=== PATIENT | male | born 1985 | race Caucasian/White ===

== ENCOUNTER 2016-04-06 05:26 | Day surgery (SDC) | payer OTHER ==
[~2016-04-06 05:26] MED LIST: Dextrose 5%-0.45% NaCl 1,000 ML IV SCH; Sodium Chloride 0.9% 10 ML Syringe FLUSH PRN
[2016-04-06] MEDS ORDERED: Sodium Chloride 0.9% 10 ML Syringe FLUSH PRN (06:00)
[2016-04-06] MEDS ORDERED: Dextrose 5%-0.45% NaCl 1,000 ML IV SCH (06:00)
[2016-04-06] MEDS ORDERED: Midazolam 1 MG/ML 2 ML SDV ONE (06:08)
[2016-04-06] MEDS ORDERED: fentaNYL 100 MCG/2 ML SDV ONE (06:08)
[2016-04-06] MEDS ORDERED: fentaNYL 100 MCG/2 ML SDV IV ONE ×3 (06:26→17:04)
[2016-04-06] MEDS ORDERED: Midazolam 1 MG/ML 2 ML SDV IV ONE ×4 (06:27→17:04)
--- NOTE | 2016-04-06 07:28 | OR ---
DATE: 04/06/2016 PROCEDURE: Esophagogastroduodenoscopy and multiple pinch biopsies. INSTRUMENT USED: GIF-H180 Olympus video panendoscope. PREMEDICATIONS: No oral topical anesthesia used. Fentanyl 100 mcg intravenous, Versed 2 mg intravenous. Nasal 2 L O2 cannula. The procedure was done under pulse oximetry, BP recording, and scrap stripper hand. INDICATION: The patient with longstanding difficulties of heartburn, related chest discomfort, regurgitation, dyspepsia, as well as abdominal pain unexplained and not responsive to medical measures. Esophagogastroduodenoscopy is performed for detection of any active erosive lesions, [place] esophagus and/or malignancy also under consideration, H. pylori status to be determined, small bowel biopsies to be obtained for celiac disease, endoscopic hemostasis therapy if needed. DESCRIPTION OF PROCEDURE: The scope was passed with ease. Adequate visualization of the esophagus was made from proximal to distal areas. No upper esophageal lesions identified. No distal esophageal stricture. No uphill or downhill esophageal varices. No Claudia-Butler tear. Grade A erosive changes were noted by [place] criteria. No esophageal polyp or tumor mass identified. Z-line was seen at around 40 cm distal to the oral verge, configuration consistent with grade 1 by ZAP classification. No proximal gastric varices noted. Gastric fundus examination by retroflexion showed no polypoid lesions. No gastric ulcer, malignant mass, or vascular ectasia identified. Duodenal bulb showed no ulcer. Visualized second part of the duodenum was unremarkable. Multiple pinch biopsies, 4 in number, were taken from different areas of the second part of the duodenum and tissues were also obtained of duodenal bulb at 9 and 12 o'clock positions and sent for any evidence of celiac disease. Multiple pinch biopsies were obtained from the gastric antrum and proximal body and sent for PyloriTek test for H. pylori and histopathology. No bleeding was noted from any of the visualized areas at the completion of examination. Photographs were taken of the duodenal bulb, gastric antrum, fundus, and distal esophagus. IMPRESSION: 1. Grade A gastroesophageal reflux disease. 2. Gastric antral erosions. The patient tolerated the procedure well. [facility] /[id number]
[2016-04-06 08:53] VITALS: BP 95/56
== END 2016-04-06 08:40 | disposition home or self-care (01) ==
LOC: DL.ENDO 05:26
PROVIDERS: ATTEND Internal Medicine Gastroenterology
DX: K29.50 Unspecified chronic gastritis without bleeding (principal); K21.9 Gastro-esophageal reflux disease without esophagitis; K25.9 Gastric ulcer, unspecified as acute or chronic, without hemorrhage or perforation
CPT/HCPCS: 43239; 87077; J2250; J3010; J7042

== ENCOUNTER 2019-03-07 07:31 | Day surgery (SDC) | payer OTHER ==
[~2019-03-07 07:31] MED LIST changes: -Dextrose 5%-0.45% NaCl 1,000 ML IV SCH; +Midazolam 1 MG/ML 2 ML SDV ONE; -Sodium Chloride 0.9% 10 ML Syringe FLUSH PRN; +fentaNYL 100 MCG/2 ML SDV ONE
[2019-03-07] MEDS ORDERED: Dextrose 5%-0.45% NaCl 1,000 ML IV SCH (08:00)
[2019-03-07] MEDS ORDERED: fentaNYL 100 MCG/2 ML SDV IV ONE ×2 (08:18→08:19)
[2019-03-07] MEDS ORDERED: Midazolam 1 MG/ML 2 ML SDV IV ONE ×2 (08:19→08:20)
[2019-03-07 10:07] VITALS: PULSE 60
[2019-03-07 10:17] VITALS: BP 121/73
--- NOTE | 2019-03-07 10:54 | OR ---
DATE: 03/07/2019 PROCEDURE: Esophagogastroduodenoscopy, NBI, and multiple pinch biopsies. INSTRUMENT USED: GIF-HQ190 Olympus video panendoscope. PREMEDICATIONS: No oral or topical anesthesia used. Fentanyl 100 mcg intravenous, Versed 2 mg intravenous. Nasal O2 cannula. The procedure was done under pulse oximetry, BP recording, and classroom monitor. INDICATION: The patient on long-term high-dose PPI. Persistent heartburn, upper abdominal pain as well as episodes of vomiting, unexplained. Esophagogastroduodenoscopy is performed for detection of any active erosive lesions. [place]erta esophagus and/or malignancy also under consideration, H. pylori status to be determined, endoscopic hemostasis therapy if needed. DESCRIPTION OF PROCEDURE: The scope was passed with ease. Adequate visualization of the esophagus was made from proximal to distal areas. No upper esophageal lesions identified. No distal esophageal stricture. No uphill or downhill esophageal varices. No Claudia-Butler tear. No evidence of erosive esophagitis by [place] criteria. No esophageal polyp or tumor mass identified. Proximally encroaching pink columnar epithelium was noted at around 36 cm distal to the oral verge. NBI views were obtained, 4 quadrant biopsies were obtained and sent for histopathology. No proximal gastric varices noted. Gastric fundus examination by retroflexion showed no polypoid lesions. No gastric ulcer, malignant mass, or vascular ectasia identified. Multiple pinch biopsies were taken from the gastric antrum and proximal body and sent for PyloriTek test for H. pylori and histopathology. Duodenal bulb showed no ulcer. Visualized second part of duodenum was unremarkable. No bleeding was noted from any of the visualized areas at the completion of examination. Photographs were taken of the duodenal bulb, gastric antrum, fundus, and distal esophagus. IMPRESSION: Columnar lined distal esophagus. The patient tolerated the procedure well. [facility] /[id number]
== END 2019-03-07 10:27 | disposition home or self-care (01) ==
LOC: DL.ENDO 07:31
PROVIDERS: ATTEND Internal Medicine Gastroenterology
DX: K21.0 Gastro-esophageal reflux disease with esophagitis (principal); F41.1 Generalized anxiety disorder; Z79.899 Other long term (current) drug therapy
CPT/HCPCS: 43239; 87077; J2250; J3010; J7042